=== PATIENT | female | born 1975 | race Caucasian/White ===

== ENCOUNTER 2017-09-14 23:45 | Emergency (ER) | payer OTHER ==
[~2017-09-14] VITALS: Ht 157.5 cm; Wt 55.3 kg
[2017-09-14 23:54] VITALS: BP 181/121
[2017-09-15] MEDS ORDERED: cloNIDine 0.1 MG TAB PO ONE
[2017-09-15] MEDS ORDERED: hydrALAZINE 20 MG/ML VIAL IM ONE (01:05)
[2017-09-15 01:37] VITALS: BP 160/99
== END 2017-09-15 01:30 ==
LOC: MED 23:45
DX: Z02.89 Encounter for other administrative examinations (principal); I10 Essential (primary) hypertension
CPT/HCPCS: 96372; 99283; J0360

== ENCOUNTER 2017-11-14 10:54 | Emergency (ER) | payer OTHER ==
[~2017-11-14] VITALS: Ht 162.6 cm; Wt 60.8 kg
[2017-11-14 11:01] VITALS: BP 160/99
--- NOTE | 2017-11-14 13:18 | NUR ---
PATIENT TAKEN TO BED # 10
--- NOTE | 2017-11-14 13:26 | NUR ---
PATIENT PRESENTS TO ED WITH C/O LEFT FLANK PAIN WITH BURNING UPON VOIDING X YESTERDAY BODYACHES, MALAISE, HEADACHES, COUGH, CONGESTION X 4 DAYS;HX OF HTN, BRONCHITIS . PT STATES "I HAVE KIDNEY INFXN;. DENIES N/V/D; SKIN IS PINK/WARM/DRY; AAOX4 WITH EVEN AND STEADY GAIT; HR EVEN AND REGULAR; PATIENT STATES PAIN OF 9/10 AT THIS TIME; PATIENT POSITIONED FOR COMFORT; HOB ELEVATED; BEDRAILS UP X2; BED DOWN. ER MD MADE AWARE OF PT STATUS.
[2017-11-14] MEDS ORDERED: KETOROLAC 30 MG/ML VIAL IVP ONE (14:15)
[2017-11-14 14:55] LABS: BASOPHILS # (AUTO) 0.2 K/uL (0.00-0.22); HEMATOCRIT 40.5 % (36-48); HEMOGLOBIN 13.8 g/dL (12.0-16.0); LYMPHOCYTES # (AUTO) 0.5 K/uL (2.5-16.5); MEAN CORPUSCULAR HEMOGLOBIN 31 pg (27-31); MEAN CORPUSCULAR HGB CONC 34 g/dL (33-37); MEAN CORPUSCULAR VOLUME 90 fL (80-94); MONOCYTES # (AUTO) 0.3 K/uL (0.8-1.0); NEUTROPHILS # (AUTO) 3.6 K/uL (1.8-7.7); PLATELET COUNT (AUTO) 251 K/uL (140-450); RED BLOOD CELL COUNT(AUTO) 4.52 MIL/uL (4.20-5.40); RED CELL DISTRIBUTION WIDTH 12.2 % (11.6-13.7); WHITE BLOOD COUNT (AUTO) 4.6 K/uL (4.8-10.8)
[2017-11-14 15:20] LABS: ANION GAP 11.9 (8-16); CARBON DIOXIDE 29.5 mmol/L (21-32); CREATININE 0.8 mg/dL (0.6-1.3); POTASSIUM 3.4 mmol/L (3.5-5.1)
[2017-11-14 15:27] LABS: ALBUMIN 3.7 g/dL (3.4-5.0); TOTAL BILIRUBIN 0.2 mg/dL (0.0-1.0)
--- NOTE | 2017-11-14 15:50 | NUR ---
WENT TO CT SCAN ACCOMPANIED BY TECH.
--- NOTE | 2017-11-14 17:08 | NUR ---
PT SLEEPING AT THIS TIME;NO ACUTE DISTRESS NOTED;WILL CONTINUE TO MONITOR PT.
--- NOTE | 2017-11-14 18:01 | NUR ---
Patient discharged with v/s stable. Written and verbal after care instructions given and explained. Patient verbalized understanding. Ambulatory with steady gait. All questions addressed prior to discharge. Advised to follow up with PMD.
[2017-11-14 18:02] VITALS: BP 130/102
== END 2017-11-14 18:01 | disposition home or self-care (01) ==
LOC: MED 10:54
DX: M79.1 Myalgia (principal); R10.9 Unspecified abdominal pain; R30.0 Dysuria; R05 Cough; I10 Essential (primary) hypertension; F17.210 Nicotine dependence, cigarettes, uncomplicated
CPT/HCPCS: 36415; 71045; 74177; 80053; 81002; 81025; 82550; 84484; 85025; 93005; 96374; 99285; J1885; Q0092; Q9967